=== PATIENT | male | born 1930 | race Caucasian/White ===

== ENCOUNTER 2018-03-12 10:40 | Observation (INO) ==
[2018-03-12 11:59] LABS: Baso % (Auto) 0.5 % (0.0-2.0); Eos # (Auto) 0.1 th/mm3 (0.0-0.4); Eos % (Auto) 1.3 % (0.0-4.0); Hematocrit 42.9 % (39.0-51.0); Hemoglobin 14.5 gm/dL (13.0-17.0); Lymph # (Auto) 1.4 th/mm3 (1.0-4.8); Lymph % (Auto) 21.7 % (9.0-44.0); Mean Corpuscular HGB Conc 33.8 % (32.0-36.0); Mean Corpuscular Hemoglobin 29.5 pg (27.0-34.0); Mean Corpuscular Volume 87.2 fL (80.0-100.0); Mean Platelet Volume 8.7 fL (7.0-11.0); Mono # (Auto) 0.6 th/mm3 (0.0-0.9); Mono % (Auto) 9.6 % (0.0-8.0); Neut # (Auto) 4.3 th/mm3 (1.8-7.7); Neut % (Auto) 66.9 % (16.0-70.0); Platelet Count 205 th/mm3 (150-450); Red Blood Count 4.92 mil/mm3 (4.50-5.90); White Blood Count 6.4 th/mm3 (4.0-11.0)
[2018-03-12 12:12] LABS: Prothrombin Time 10.2 sec (9.8-11.6)
[2018-03-12 12:22] LABS: Albumin 3.7 g/dL (3.4-5.0); Calcium 8.7 mg/dL (8.5-10.1); Carbon Dioxide 26.8 meq/L (21.0-32.0); Potassium 4.2 meq/L (3.5-5.1)
[2018-03-12] MEDS ORDERED: Sod Chloride 0.9% Inj 1,000 ML IV.CONT SCH ×2 (12:30→16:15)
[2018-03-12] MEDS ORDERED: Heparin/NS PF Inj 1,500 ML ONE (13:29)
[2018-03-12] MEDS ORDERED: fentaNYL Citrate Inj 100 MCG/2 ML Ampul ONE (13:30)
[2018-03-12 13:43] LABS: Bilirubin,Urine Negative (Negative); Clarity,Urine Clear (Clear); Color,Urine Yellow (Yellw/Straw); Glucose,Urine (UA) Negative (Negative); Leukocyte Esterase,Urine Negative (Negative); Nitrite,Urine Negative (Negative); Specific Gravity,Urine 1.009 (1.002-1.035)
[2018-03-12] MEDS ORDERED: Adenosine Stress Test 90 MG/30 ML Vial IV.SIG ONE (14:26)
[2018-03-12] MEDS ORDERED: Heparin/NS PF Inj 500 ML ONE ×2 (14:45→15:11)
[2018-03-12] MEDS ORDERED: Heparin 10,000 UNITS/10 ML Vial (for IV use) ONE (14:51)
--- NOTE | 2018-03-12 16:27 | CATHPROC ---
[facility] HIS Report Study Information Study Number Admission Scheduled Start Study Start [id number] Mar 12 2018 10:40AM 03/12/2018 Mar 12 2018 1:24PM [place] Service Cardiac Catheterization Admit Source Facility Department Other [facility] - Conservation Planner Physician and Clinical Staff Initial Sarah York Cytotechnologist Pawan ANDINO, Ever Recorder Roopa Fierro,RT(R) (BS) Recorder Patrick Kamara,RT(R) Brayden Cook RCIS(BS) Procedures Performed Procedure Location (Site) Vessel Name Coronary Angiograms LCA Left Coronary Coronary Angiograms RCA Right Coronary Drug Eluting Inflatio RCA Dist Right Coronary Drug Eluting Inflatio RCA Mid Right Coronary PTCA RCA Dist Right Coronary PTCA RCA Mid Right Coronary PTCA RCA Prox Right Coronary Wire insertion Radial (right) Radial Art. Equipment Time Web Programmer Description Size Mfg Part Number Used/Scraped COPILOT VALVE, BLEEDBACK [id number] 14:21 [employer] Used CONTROL *[id number] WIRE, BALANCE MIDDLEWEIGHT [id number] 14:21 [employer] 190CM Used 190CM *[id number] WIRE, BALANCE MIDDLEWEIGHT [id number] 14:27 [employer] 190CM Used 190CM *[id number] WIRE, BALANCE MIDDLEWEIGHT [id number] 14:31 [employer] 190CM Used 190CM *[id number] 13:53 [employer] WIRE, NITONOL 80CM 80CM Used *[id number] CATHETER, FR5 SWAN CHANI 13:57 MAX BRANDT FR 5 [id number] *[id number] Used MONITOR TRANSDUCER, TRUWAVE [id number] 13:36 MAX BRANDT * Used W/STOCKCOCK *[id number] TRANSDUCER, TRUWAVE [id number] 13:36 MAX BRANDT * Used W/STOCKCOCK *6384759 SDN-21-2.5 13:53 [employer] NEEDLE, PERCUTANEOUS ENTRY 21G X 2.5CM Used *9863986 [phone] *[id number] [phone] *[id number] [id number] 13:36 Relive BLANKET,WARM AIR CCL * Used *[id number] 13:36 Relive PACK, CCL CUSTOM * Used *6382803 [id number] 14:42 [employer] BALLOON, 2.0 X 20MM EUPHORA 20MM Used *[id number] 14:51 [employer] BALLOON, 2.5 X 20MM EUPHORA 20MM Used *[id number] BALLOON, 2.5 X 20MM NC [id number] 14:55 [employer] 20MM Used EUPHORA *[id number] BALLOON, 2.75 X 8MM NC [id number] 15:56 [employer] 8MM Used EUPHORA *[id number] 13:49 [employer] JL 3.5 DXTERITY CATHETER FR 5 Used *5832124 [id number] 13:49 [employer] JR 4.0 DXTERITY CATHETER FR 5 Used *[id number] 15:39 [employer] STENT, 2.25 15MM HITESH 2.25 15MM [id number] Used 15:04 [employer] STENT, 2.25 22MM HITESH 2.25 22MM [id number] Used 14:49 [employer] STENT, 2.25 38MM HITESH 2.25 38MM [id number] Used 15:45 [employer] STENT, 2.5 38MM HITESH 2.5 38MM [id number] Used [id number] 15:52 [employer] STENT, 2.75 12MM HITESH 2.75 12MM Used *[id number] [id number] 14:46 [employer] MEDICAL 30 INNA INDEFLATOR Used *[id number] BAND, RADIAL COMPRESSION TR [id number] 15:59 [employer] 24CM Used SHORT 24 *[id number] 13:36 [employer] MEDICAL WIRE, 3MMJ .035 180CM 180CM Used *[id number] 13:36 NAMIC MANIFOLD, 2 PORT * Used *6710431 [id number] 13:36 NAMIC MANIFOLD, 4 PORT * Used *[id number] 13:36 [employer] OMNIPAQUE, 350 MG, 150ML 150ML [id number] Used SHEATH, FR6 TRANSRADIAL 80-1060 13:53 [employer] FR 6 Used SLENDER 10CM *[id number] SHEATH, FR6 TRANSRADIAL 80-1060 13:53 [employer] FR 6 Used SLENDER 10CM *[id number] 15:08 [employer] CATHETER, FR6 GUIDELINER FR 6 5571 *[id number] Used Equipment Model, Serial, Lot Number and Expiration Data Description Model Number Serial Number Lot Number Expiration Date JR 4.0 DXTERITY CATHETER [id number] 06-25-2020 STENT, 2.25 15MM HITESH [id number] 10-15-2019 STENT, 2.25 22MM HITESH [id number] 04-12-2019 STENT, 2.5 38MM HITESH [id number] 09-26-2019 STENT, 2.75 12MM HITESH [id number] 09-15-2019 WIRE, NITONOL 80CM [id number] 06-09-2022 History: Current Medications Medication Dosage/Unit Route Frequency Last Date/Time Taken Statins (any) History: Allergies Allergy Reaction No Known Allergies History: Risk Factors Family History of Hypertension Dyslipidemia Previous MD Previous Heart Failure Premature CAD Yes Yes Yes No No Prior Valve Prior PCI Prior CABG Surgery No No No Cerebrovascular Peripheral Artery Chronic Lung On Dialysis Diabetes Disease Disease Disease No No No No No History: Stress Tests Stress or Imaging Studies Performed No History: Other Disease Selection Items HTN History: Other Current Smoker No Labs Hgb (g/dl) Hct (%) WBC (l/cumm) Platelets (thousands) 11.60-17.00 35.00-51.00 4.00-11.00 150.00-450.00 14.5 42.9 6.4 205 Glucose (mg/dl) BUN (mg/dl) Creatinine (mg/dl) BUN:Creatinine (1:x) 74.00-106.00 7.00-18.00 0.50-1.30 10.00-20.00 95 18 1.0 18 Na (meq/l) K (meq/l) 136.00-145.00 3.50-5.10 141 4.2 INR (PTT:PT) 0.90-1.10 1 CPK-MB (ng/ML) 0.50-3.60 Not Drawn Medication Medication Total Dose (Bolus/Oral) Medication Total Dosage/Unit 1% XYLOCAINE 5 mL FENTANYL 50 mcg HEPARIN 9000 units PLAVIX 600 mg VERAPAMIL 4 mg VERSED 2 mg Medications (Bolus/Oral) Medication Time Given Dosage/Unit Administered By Reason 1% XYLOCAINE 03/12/2018 2:02:15 PM 5 mL Sarah Venegas 5 mL 1% XYLOCAINE given in lab by Sarah Venegas in Right Radial via Subcutaneous. VERSED 03/12/2018 2:03:24 PM 2 mg Ever Villalta RN 2 mg VERSED given in lab by Ever Villalta RN in Left Antecubital via Peripheral IV. Ordered by Sarah Venegas. FENTANYL 03/12/2018 2:03:30 PM 50 mcg Ever Villalta RN 50 mcg FENTANYL given in lab by Ever Villalta RN in Left Antecubital via Peripheral IV. Ordered by Sarah Huang. VERAPAMIL 03/12/2018 2:04:09 PM 4 mg Sarah Venegas 4 mg VERAPAMIL given in lab by Sarah Venegas in Right Radial via Intra-arterial. Ordered by Alonzo Venegas. HEPARIN 03/12/2018 2:05:56 PM 5000 units Ever Villalta RN 5000 units HEPARIN given in lab by Ever Villalta RN in Left Antecubital via Peripheral IV. Ordered by Sarah Venegas. HEPARIN 03/12/2018 2:28:43 PM 3000 units Ever Villalta RN 3000 units HEPARIN given in lab by Ever Villalta RN in Left Antecubital via Peripheral IV. Ordered by Sarah Venegas. HEPARIN 03/12/2018 3:28:00 PM 1000 units Ever Villalta RN 1000 units HEPARIN given in lab by Ever Villalta RN in Left Antecubital via Peripheral IV. Ordered by Sarah Venegas. PLAVIX 03/12/2018 4:04:32 PM 600 mg Ever Villalta RN 600 mg PLAVIX given in lab by vEer Villalta RN via Oral. Ordered by Sarah Venegas. Medication (Drip) Medication Time Given Dosage/Unit Concentration/Unit Diluent (ml) Solution IV Solutions 03/12/2018 1:24:34 PM 0 mL (IV) 500 NaCl .9 IV Solutions given in lab by Ever Villalta RN in Left Antecubital via Peripheral IV. Pump/Drip Flow = 30 ml/hr using NaCl .9. Initial Case Assessment Cardiovascular HR Rhythm NIBP Chest Pain 71 reg 158/74 0 Edema Present Skin color Skin None Normal Warm Dry Circulatory - Right Pulses Dorsalis Pedis Femoral Radial 3 3 3 Scale (0,1,2,3,4,d) Scale (0,1,2,3,4,d) Circulatory - Lower Extremities Color Lower Right Color Lower Left Normal Normal Neurological State Oriented to time-place- Alert Moves all extremities person Respiration - General Respiration Rate SpO2 (%) (B/min) 18 96 Final Case Assessment Cardiovascular HR Rhythm NIBP Chest Pain 61 Sinus 173/82 0 Edema Present Skin color Skin None Normal Warm Dry Circulatory - Right Pulses Dorsalis Pedis Femoral Radial 3 3 3 Scale (0,1,2,3,4,d) Scale (0,1,2,3,4,d) Neurological State Oriented to time-place- Alert Moves all extremities person Respiration - General Respiration Rate SpO2 (%) O2 (lpm) (B/min) 14 96 2 Chronological Log Time Study Chronological Log 13:24:20 Patient arrived via Bed. 13:24:21 Patient Name, D.O.B, / Armband Verified By R.N. 13:24:21 Consent signed by the physician and the patient and verified by the Conservation Planner staff. 13:24:22 Pre-op and post- op instructions given; patient acknowledges understanding of instructions. 13:24:24 Presedation assessment performed by Conservation Planner RN. 13:24:26 A # 20 IV was noted in the Antecubital (right). Grade = 0 13:24:26 Allens test performed on the right radial and ulnar artery. 13:24:27 Patient has been NPO for More than 6Hrs. 13:24:28 Skin Breakdown none per pt 13:24:29 Patient Warmer Placed on the Table. 13:24:32 Leonel Prominences Protected 13:24:33 A # 20 IV was noted in the Antecubital (left). Grade = 0 IV Solutions given in lab by Ever Villalta RN in Left Antecubital via Peripheral IV. Pump/Drip F low = 30 ml/hr using NaCl 13:24:34 .9. 13:24:35 History and physical on the chart or being dictated. Assessment: Initial Case, HR=71 BPM, Rhythm=reg, ABJD=600/74 mmhg, Chest Pain=0, Edema=None, Co miriam=Normal, Skin = Warm, Dry Right Pulses: Armaan Ped=3, Femoral=3, Radial=3 13:24:35 Lower Right Extremities: Color=Normal Lower Left Extremities: Color=Normal Neurological: State=Alert, Ox3, CORTEZ Respiration: Resp=18 B/min, SpO2=96 % Vitals capture started with the following parameters, Patient=Adult, Interval=5 min, Initial Pr wwejat=009 mmHg, 13:30:25 Deflation Rate=5 mmHg, Cuff placed on Left Arm 13:30:46 Reference ECG taken 13:31:07 HR=71 bpm, NJKE=077/74 mmhg, SpO2=95.0 %, Resp=13 B/min, Pain=0, Jaime=10, Avila=2 13:36:08 HR=71 bpm, YXQP=657/77 mmhg, SpO2=93.0 %, Resp=18 B/min, Pain=0, Jaime=10, Avila=2 13:41:07 HR=71 bpm, AXUA=049/81 mmhg, SpO2=95.0 %, Resp=20 B/min, Pain=0, Jaime=10, Avila=2 13:46:10 HR=70 bpm, DFHN=080/73 mmhg, SpO2=95.0 %, Resp=13 B/min, Pain=0, Jaime=10, Avila=2 13:51:07 HR=71 bpm, ONYV=756/80 mmhg, SpO2=92.0 %, Resp=18 B/min, Pain=0, Jaime=10, Avila=2 Time Out. Correct patient, correct procedure, correct physician, labs, allergies, and equipment verified with high density press laborer 13:51:31 team present. Fire risk assesment completed (see hard stop sheet for coding). Time Out Conc urred by MD and individual staff in procedure. 13:51:34 Case Start A SHEATH, FR6 TRANSRADIAL SLENDER 10CM FR 6 was exchanged in the Antecubital (right). This was necessary in 13:52:06 order to accomodate a larger catheter. 13:53:52 Pressure channel 1 zeroed. 13:55:48 A CATHETER, FR5 SWAN CHANI MONITOR FR 5 was inserted via Brach. Vein (right) 13:56:10 HR=67 bpm, DGIF=413/77 mmhg, SpO2=95.0 %, Resp=18 B/min, Pain=0, Jaime=10, Avila=2 Recorded Pressure: RA, HR=70, Condition=Condition 1 13:57:57 (Right Atrium) RA 5/3/1 Recorded Pressure: RV, HR=70, Condition=Condition 1 13:58:22 (Right Ventricle) RV 25/-2/3 Recorded Pressure: PCW, HR=70, Condition=Condition 1 13:58:54 (Pulmonary Capillary Wedge) PCW Recorded Pressure: MPA, HR=70, Condition=Condition 1 13:59:19 (Main Pulmonary Artery) MPA 14:00:12 Saturation: Site=PA (Pulmonary Artery) , O2=77.7 %, Hgb=14.5 gm/dl, Condition=Condition 1. Used in calculation. Recorded Pressure: MPA, HR=71, Condition=Condition 1 14:00:56 (Main Pulmonary Artery) MPA 06/03/15 14:01:09 HR=71 bpm, OFQA=076/78 mmhg, SpO2=92.0 %, Resp=20 B/min, Pain=0, Jaime=10, Avila=2 14:02:08 [place] Chani Catheter Removed 14:02:15 5 mL 1% XYLOCAINE given in lab by Sarah Venegas in Right Radial via Subcutaneous. 14:03:07 Access site was Right Radial Artery . A SHEATH, FR6 TRANSRADIAL SLENDER 10CM FR 6 was advanced into the Fem Art (right) using the Per cutaneous 14:03:13 technique. 14:03:24 2 mg VERSED given in lab by Ever Villalta RN in Left Antecubital via Peripheral IV. Ordered by Sarah Venegas. 14:03:30 50 mcg FENTANYL given in lab by Ever Villalta RN in Left Antecubital via Peripheral IV. Orde red by Sarah Venegas. 14:03:57 Saturation: Site=Ao (Aorta) , O2=93.3 %, Hgb=14.5 gm/dl, Condition=Condition 1. Used in franky culation. 14:04:09 4 mg VERAPAMIL given in lab by Sarah Venegas in Right Radial via Intra-arterial. Ordered by Sarah Venegas. A JR 4.0 DXTERITY CATHETER FR 5 was advanced over a wire. OMNIPAQUE, 350 MG, 150ML 150ML was us ed for 14:04:46 injections. 14:05:56 5000 units HEPARIN given in lab by Ever Villalta RN in Left Antecubital via Peripheral IV. O rdered by Sarah Venegas. 14:06:10 HR=69 bpm, AHMX=219/66 mmhg, SpO2=88.0 %, Resp=22 B/min, Pain=0, Jaime=10, Avila=2 Recorded Pressure: Ao, HR=71, Condition=Condition 1 14:06:49 (Aorta) Ao 128/51/83 14:08:17 The RCA was injected and visualized at various angles. OMNIPAQUE, 350 MG, 150ML 150ML used . After removing the current catheter a JL 3.5 DXTERITY CATHETER FR 5 was advanced over a WIRE, 3 MMJ .035 180CM 14:10:47 180CM. 14:11:05 HR=71 bpm, FZDO=763/66 mmhg, SpO2=91.0 %, Resp=18 B/min, Pain=0, Jaime=10, Avila=2 14:12:40 The LCA was injected and visualized at various angles. OMNIPAQUE, 350 MG, 150ML 150ML used . 14:16:06 HR=71 bpm, NJTG=529/70 mmhg, SpO2=94.0 %, Resp=19 B/min, Pain=0, Jaime=10, Avila=2 14:21:05 HR=70 bpm, EZEG=155/77 mmhg, SpO2=94.0 %, Resp=20 B/min, Pain=0, Jaime=10, Avila=2 After removing the current catheter a JR 4.0 GUIDE CATHETER FR 6 was advanced over a WIRE, 3MMJ .035 180CM 14:21:50 180CM. 14:23:06 Activated Clotting Time Drawn 14:26:10 HR=65 bpm, RZHV=485/72 mmhg, SpO2=95.0 %, Resp=30 B/min, Pain=0, Jaime=10, Avila=2 14:27:53 ACT (Normal Range 90-180) = 241 14:28:43 3000 units HEPARIN given in lab by Ever Villalta RN in Left Antecubital via Peripheral IV. O rdered by Sarah Venegas. 14:30:00 A WIRE, BALANCE MIDDLEWEIGHT 190CM 190CM was inserted via Radial (right). 14:31:07 HR=64 bpm, SAOY=651/74 mmhg, SpO2=95.0 %, Resp=19 B/min, Pain=0, Jaime=10, Avila=2 14:35:07 Wire removed 14:36:08 HR=65 bpm, GGMN=336/70 mmhg, SpO2=96.0 %, Resp=12 B/min, Pain=0, Jaime=10, Avila=2 After removing the current catheter a AL 1 GUIDE CATHETER FR 6 was advanced over a WIRE, 3MMJ . 035 180CM 14:37:44 180CM. 14:39:25 A WIRE, BALANCE MIDDLEWEIGHT 190CM 190CM was inserted via Radial (right). 14:41:09 HR=64 bpm, NNWM=806/69 mmhg, SpO2=96.0 %, Resp=18 B/min, Pain=0, Jaime=10, Avila=2 14:42:05 Interventional wire has crossed the lesion A BALLOON, 2.0 X 20MM EUPHORA 20MM was inserted over WIRE, BALANCE MIDDLEWEIGHT 190CM 190CM via the 14:44:35 RCA Dist. A BALLOON, 2.0 X 20MM EUPHORA 20MM over a WIRE, BALANCE MIDDLEWEIGHT 190CM 190CM in the RCA Dis t was 14:45:39 inflated using a 30 INNA INDEFLATOR at 10 inna for 30 sec. 14:46:08 HR=64 bpm, ZEMR=167/72 mmhg, SpO2=96.0 %, Resp=16 B/min, Pain=0, Jaime=10, Avila=2 14:47:37 Balloon Removed. A STENT, 2.25 38MM HITESH 2.25 38MM was advanced through a AL 1 GUIDE CATHETER FR 6 over a WIRE, BALANCE 14:48:52 MIDDLEWEIGHT 190CM 190CM. 14:50:03 Stent not deployed. Stent removed and intact. A BALLOON, 2.5 X 20MM EUPHORA 20MM was inserted over WIRE, BALANCE MIDDLEWEIGHT 190CM 190CM via the 14:50:39 RCA Dist. 14:51:09 HR=62 bpm, ROXF=771/74 mmhg, SpO2=96.0 %, Resp=12 B/min, Pain=0, Jaime=10, Avila=2 A BALLOON, 2.5 X 20MM EUPHORA 20MM over a WIRE, BALANCE MIDDLEWEIGHT 190CM 190CM in the RCA Dis t was 14:52:20 inflated using a 30 INNA INDEFLATOR at 10 inna for 15 sec. A BALLOON, 2.5 X 20MM EUPHORA 20MM over a WIRE, BALANCE MIDDLEWEIGHT 190CM 190CM in the RCA Dis t was 14:53:22 inflated using a 30 INNA INDEFLATOR at 10 inna for 10 sec. 14:54:21 Balloon Removed. 14:56:06 Activated Clotting Time Drawn 14:56:13 HR=62 bpm, GLAA=614/70 mmhg, SpO2=96.0 %, Resp=13 B/min, Pain=0, Jaime=10, Avila=2 A BALLOON, 2.5 X 20MM NC EUPHORA 20MM was inserted over WIRE, BALANCE MIDDLEWEIGHT 190CM 190CM via 14:57:49 the RCA Prox. A BALLOON, 2.5 X 20MM NC EUPHORA 20MM over a WIRE, BALANCE MIDDLEWEIGHT 190CM 190CM in the RCA Prox 14:58:36 was inflated using a 30 INNA INDEFLATOR at 20 inna for 25 sec. 14:59:38 Balloon Removed. 15:01:10 HR=62 bpm, UZHS=243/75 mmhg, SpO2=96.0 %, Resp=19 B/min, Pain=0, Jaime=10, Avila=2 A STENT, 2.25 38MM HITESH 2.25 38MM was advanced through a AL 1 GUIDE CATHETER FR 6 over a WIRE, BALANCE 15:01:13 MIDDLEWEIGHT 190CM 190CM. 15:01:42 ACT (Normal Range 90-180) = 309 15:03:05 Stent not deployed. Stent removed and intact. A STENT, 2.25 22MM HITESH 2.25 22MM was advanced through a AL 1 GUIDE CATHETER FR 6 over a WIRE, BALANCE 15:04:32 MIDDLEWEIGHT 190CM 190CM. 15:06:13 HR=62 bpm, XYCW=293/74 mmhg, SpO2=95.0 %, Resp=18 B/min, Pain=0, Jaime=10, Avila=2 15:08:27 Delivery device removed A CATHETER, FR6 GUIDELINER FR 6 was advanced over a wire. OMNIPAQUE, 350 MG, 150ML 150ML was us ed for 15:09:32 injections. 15:11:14 HR=62 bpm, OSZN=870/76 mmhg, SpO2=95.0 %, Resp=17 B/min, Pain=0, Jaime=10, Avila=2 A STENT, 2.25 22MM HITESH 2.25 22MM was advanced through a CATHETER, FR6 GUIDELINER FR 6 over a W JESSIE, 15:13:24 BALANCE MIDDLEWEIGHT 190CM 190CM. 15:16:11 HR=62 bpm, JZQU=034/82 mmhg, SpO2=95.0 %, Resp=19 B/min, Pain=0, Jaime=10, Avila=2 15:20:31 Stent not deployed. Stent removed and intact. 15:21:14 HR=63 bpm, SKKT=089/78 mmhg, SpO2=96.0 %, Resp=11 B/min, Pain=0, Jaime=10, Avila=2 A BALLOON, 2.5 X 20MM NC EUPHORA 20MM was inserted over WIRE, BALANCE MIDDLEWEIGHT 190CM 190CM via 15:21:38 the RCA Prox. A BALLOON, 2.5 X 20MM NC EUPHORA 20MM over a WIRE, BALANCE MIDDLEWEIGHT 190CM 190CM in the RCA Prox 15:21:57 was inflated using a 30 INNA INDEFLATOR at 12 inna for 10 sec. A BALLOON, 2.5 X 20MM NC EUPHORA 20MM over a WIRE, BALANCE MIDDLEWEIGHT 190CM 190CM in the RCA Prox 15:23:22 was inflated using a 30 INNA INDEFLATOR at 20 inna for 20 sec. A BALLOON, 2.5 X 20MM NC EUPHORA 20MM over a WIRE, BALANCE MIDDLEWEIGHT 190CM 190CM in the RCA Mid 15:24:18 was inflated using a 30 INNA INDEFLATOR at 12 inna for 10 sec. 15:26:17 HR=63 bpm, BKNT=029/81 mmhg, SpO2=96.0 %, Resp=17 B/min, Pain=0, Jaime=10, Avila=2 15:27:41 Balloon Removed. 15:28:00 1000 units HEPARIN given in lab by Ever Villalta RN in Left Antecubital via Peripheral IV. O rdered by Sarah Venegas. A STENT, 2.25 22MM HITESH 2.25 22MM was advanced through a CATHETER, FR6 GUIDELINER FR 6 over a W JESSIE, 15:28:32 BALANCE MIDDLEWEIGHT 190CM 190CM. A STENT, 2.25 22MM HITESH 2.25 22MM was deployed using a 30 INNA INDEFLATOR at 12 atmospheres for 20 seconds 15:30:53 in the RCA Dist. 15:31:16 HR=68 bpm, NLNF=059/87 mmhg, SpO2=97.0 %, Resp=10 B/min, Pain=0, Jaime=10, Avila=2 15:32:32 NIBP STAT measurement started. 15:33:19 HR=64 bpm, ODAY=113/73 mmhg, SpO2=97.0 %, Resp=9 B/min, Pain=0, Jaime=10, Avila=2 15:34:46 Re-inflated the stent balloon in the RCA Dist to 12 INNA for 10 seconds. 15:35:04 Delivery device removed 15:36:13 HR=64 bpm, GDMT=941/83 mmhg, SpO2=96.0 %, Resp=10 B/min, Pain=0, Jaime=10, Avila=2 15:37:01 The RCA was injected and visualized at various angles. OMNIPAQUE, 350 MG, 150ML 150ML used . A STENT, 2.25 15MM HITESH 2.25 15MM was advanced through a CATHETER, FR6 GUIDELINER FR 6 over a W JESSIE, 15:39:27 BALANCE MIDDLEWEIGHT 190CM 190CM. A STENT, 2.25 15MM HITESH 2.25 15MM was deployed using a 30 INNA INDEFLATOR at 13 atmospheres for 15 seconds 15:40:45 in the RCA Dist. 15:41:14 HR=65 bpm, WGQC=562/82 mmhg, SpO2=96.0 %, Resp=10 B/min, Pain=0, Jaime=10, Avila=2 15:42:15 Delivery device removed A STENT, 2.5 38MM HITESH 2.5 38MM was advanced through a CATHETER, FR6 GUIDELINER FR 6 over a WIR E, 15:44:49 BALANCE MIDDLEWEIGHT 190CM 190CM. 15:46:17 HR=62 bpm, FUQA=470/83 mmhg, SpO2=93.0 %, Resp=15 B/min, Pain=0, Jaime=10, Avila=2 A STENT, 2.5 38MM HITESH 2.5 38MM was deployed using a 30 INNA INDEFLATOR at 14 atmospheres for 20 seconds in 15:48:24 the RCA Mid. 15:49:55 Delivery device removed A STENT, 2.75 12MM HITESH 2.75 12MM was advanced through a CATHETER, FR6 GUIDELINER FR 6 over a W JESSIE, 15:51:05 BALANCE MIDDLEWEIGHT 190CM 190CM. 15:51:18 HR=62 bpm, SBQH=400/79 mmhg, SpO2=94.0 %, Resp=12 B/min, Pain=0, Jaime=10, Avila=2 A STENT, 2.75 12MM HITESH 2.75 12MM was deployed using a 30 INNA INDEFLATOR at 16 atmospheres for 20 seconds 15:53:41 in the RCA Mid. 15:54:41 Delivery device removed 15:55:15 Catheter was removed A BALLOON, 2.75 X 8MM NC EUPHORA 8MM was inserted over WIRE, BALANCE MIDDLEWEIGHT 190CM 190CM v ia the 15:55:49 RCA Mid. 15:56:17 HR=62 bpm, ESLD=908/80 mmhg, SpO2=95.0 %, Resp=13 B/min, Pain=0, Jaime=10, Avila=2 A BALLOON, 2.75 X 8MM NC EUPHORA 8MM over a WIRE, BALANCE MIDDLEWEIGHT 190CM 190CM in the RCA M id 15:56:28 was inflated using a 30 INNA INDEFLATOR at 20 inna for 30 sec. 15:57:52 Balloon Removed. 15:57:58 Wire removed 15:58:05 The RCA was injected and visualized at various angles. contrast used. 15:59:05 A WIRE, 3MMJ .035 180CM 180CM was inserted via Radial (right). 16:00:01 Catheter was removed 16:00:12 Case End (Physician broke scrub) 16:01:18 HR=61 bpm, PTKV=779/82 mmhg, SpO2=96.0 %, Resp=10 B/min, Pain=0, Jaime=10, Avila=2 16:02:53 Activated Clotting Time Drawn Radial Compression Device Used. 13 mLs of air placed in BAND, RADIAL COMPRESSION TR SHORT 24 24 CM. Affected 16:03:35 hand 97 % O2 saturation. 16:03:46 No case complications noted. 16:03:50 Cine recording checked. 16:04:15 Bedside Report will be given. 16:04:20 Implantable Device card placed in patient's chart. 16:04:29 A Left and Right Heart Cath was performed. 16:04:32 600 mg PLAVIX given in lab by Ever Villalta RN via Oral. Ordered by Sarah Venegas. Assessment: Final Case, HR=61 BPM, Rhythm=Sinus, TOZZ=193/82 mmhg, Chest Pain=0, Edema=None, Color=Normal, Skin = Warm, Dry 16:04:34 Right Pulses: Armaan Ped=3, Femoral=3, Radial=3 Neurological: State=Alert, Ox3, CORTEZ Respiration: Resp=14 B/min, SpO2=96 %, O2=2 lpm 16:06:22 HR=64 bpm, QUIW=786/86 mmhg, SpO2=96.0 %, Resp=20 B/min, Pain=0, Jaime=10, Avila=2 16:08:23 ACT (Normal Range 90-180) = 273 16:10:45 Vitals capture stopped. 16:12:04 Sheath(s) left in place, will be removed in Holding Area. Venous right antecubital. 16:14:05 Patient moved to stretcher End Study - Contrast Media Used In Study Contrast Total Opened (mL) Total Used (mL) Total Wasted (mL) Omnipaque 350 300 50 End Study - Maximum Contrast Load Max Contrast Load (mL) 455.5 End Study - Radiation Exposure Fluoro Time (minutes) 44.0 End Study - Patient Disposition Complications Transferred To Interventional Outcome No Outpatient Bed successful
[2018-03-12] MEDS ORDERED: Iohexol 350 MG/ML 100 ML Vial (for Cath Lab) IVCONTRAST ONE (16:35)
--- NOTE | 2018-03-12 19:10 | MA ---
cc: Sarah Venegas MD, Aalok DATE: 03/12/2018 REFERRING PHYSICIAN: Dr. Davis. PREPROCEDURE DIAGNOSIS: Severe symptomatic aortic stenosis. POSTPROCEDURE DIAGNOSES: Coronary artery disease, status post successful percutaneous coronary intervention to the right coronary artery using 4 drug-eluting stents. PROCEDURES PERFORMED: 1. Selective coronary angiography via the right radial artery. 2. Right heart catheterization via the right brachial vein. PROCEDURES PERFORMED: 1. Selective coronary angiography via the right radial artery. 2. Right heart catheterization via the right brachial vein. 3. Successful percutaneous coronary intervention to the right coronary artery using a 2.25 x20 Resolute Felix drug-eluting stent in the PDA, followed by a 225 x 15 Resolute [place] drug-eluting stent in the distal RCA, followed by a 2.5 x 38 Resolute Felix drug-eluding stent in the mid RCA, followed by a 2.25 x 22 Resolute [place] drug-eluting stent in the posterior descending artery in overlapping fashion with a 2.25 x 15 Resolute [place] drug-eluting stent in the distal RCA that was postdilated with a 2.5 balloon followed by a 2.5 x 38 Resolute Felix drug-eluting stent in the mid RCA, followed by a 2.75 x 12 Resolute Felix drug-eluting stent in the mid RCA. INDICATIONS: In brief, Mr. Chris Hayes is a very pleasant 87-year-old gentleman who presents today for transcatheter aortic valve replacement workup. Please see H and P for details. DESCRIPTION OF PROCEDURE: After discussion of risks, benefits, and alternatives, the patient signed informed consent. He was brought to catheterization suite stable in a fasting nonsedated state. He was sterilely prepped and draped in the usual fashion sedated with IV fentanyl and 1% lidocaine solution was used for local anesthesia and we placed a sheath into the brachial vein. A 5-British Ruby-Travis catheter was used to measure right-sided pressures. FINDINGS: HEMODYNAMICS: Mean RA pressure of 1. Mean PA pressure 15. Mean pulmonary capillary wedge pressure of 5. PA sat was 77. Keron cardiac index was 2.7. CORONARY ANGIOGRAPHY: We then proceeded with coronary angiography. We used a 2.5 micropuncture needle and obtained access to the right radial artery. Using a modified Seldinger technique, we placed a 5-British sheath into the right radial artery. Through this sheath, we used a 5-British JR4 dexterity catheter to engage the right coronary artery. Images were obtained after intracoronary contrast dye injection. We then exchanged for a 5-British JL 4.6 which was used to engage the left main coronary artery. Images were obtained after intracoronary contrast dye injection. FINDINGS: ANGIOGRAPHY: LEFT MAIN: The left main is moderate caliber that bifurcates into the left anterior descending artery and left circumflex artery. It is angiographically free of significant disease. LEFT ANTERIOR DESCENDING ARTERY: The left anterior descending artery is a moderate caliber vessel that courses distally to wrap around the apex. It gives rise to multiple diagonal branches. There is mild disease in the proximal portion of the vessel. The remainder of the vessel was angiographically free of significant disease. LEFT CIRCUMFLEX: Left circumflex is a moderate caliber vessel that courses distally to wrap around the apex, giving rise to multiple obtuse marginal branches. There is mild disease in this vessel. RIGHT CORONARY ARTERY: The right coronary artery is a moderate caliber vessel that bifurcates in the posterior descending and posterolateral artery. There is serial tandem lesions in the right coronary artery. There is a severe lesion in the PDA. The mid to distal RCA and tandem lesions in the RCA including lesion in the PDA and distal RCA as well as the mid RCA. INTERVENTIONAL SUMMARY: We then proceeded with planned percutaneous coronary intervention. Using an AL1 guide, we engaged the right coronary artery. A BMW wire was used to wire down the length of the vessel into the PDA. We predilated the posterior descending artery with a 2-0 Compliant balloon. We then attempted first to deliver a 2.25 Resolute Felix drug-eluting stent; however, the stent was unable to pass. 2-0 Compliant balloon followed by 2.5 Compliant balloon in the mid RCA, followed by a 2.5 balloon in the mid RCA. We then attempted to deliver our 2.25 stent to the posterior descending artery; however, we were unable to advance the stent past the mid RCA. Subsequently, we further predilated with a 2.59 noncompliant balloon. We then reattempted to place a shorter stent in the PDA, which was a 2.25 x 22. The stent would not again pass the mid RCA. We then subsequently used a Guide Liner and using a variable guide technique with a 2.5 balloon. We then subsequently used a Guide Liner for added support. Using a 2.5 balloon, we used an inch worm technique to advance our Guide liner into the mid RCA past the point of resistance. We were then able to place a shorter 2.25 x 22 Resolute [place] drug-eluting stent. We then placed in overlapping fashion a 2.25 x 15 Resolute Felix drug-eluting stent. This was postdilated with a 2.5 balloon. We then treated the mid artery with a 2.5 x 38 Resolute [place] drug-eluting stent, followed by a 2.75 x 12 Resolute Felix drug-eluting stent proximal to this stent. We postdilated the proximal portion with a 2.75 noncompliant balloon. The patient tolerated the procedure well without any complications. Heparin was given throughout the case and monitored using sterile activated clotting time measurements. The patient tolerated the procedure well without any complications. Our Guide catheter was removed over a wire. PROCEDURAL SUMMARY: Successful percutaneous coronary intervention to the right coronary artery using 4 drug-eluting stents (2.25 x 22 Resolute Felix drug-eluting stent, followed by 2.25 x 15 Resolute Felix drug-eluting stent, followed by 2.5 x 38 Resolute Felix drug-eluting stent, followed by 2.75 x 12 Resolute Felix drug-eluting stent). PLAN: 1. Aspirin 81 mg, Plavix 75 mg. for duration of 1 year, 2. Continuation of TAVR workup. Given the contrast used for today's procedure, we will place a CT chest, abdomen and pelvis. He will be seen in CV surgery consultation. Thank you for allowing me to participate in the care of Mr. Hayes. Please feel free to contact us with any further questions regarding his care. MD MELINA Casarez/ , 06:30 PM , 06:45 PM
--- NOTE | 2018-03-13 09:17 | ECG ---
Date Performed: 03/12/2018 Time Performed: 11:05:46 PTAGE: 87 years EKG: Sinus arrhythmia. Left axis deviation Left anterior fascicular block Nonspecific intraventr icular conduction delay Minimal voltage criteria for LVH Abnormal ECG NO PREVIOUS TRACING DOCTOR: Kumar Roach Interpretating Date/Time 03/13/2018 09:16:59
--- NOTE | 2018-03-13 14:18 | P.PNCV ---
- Note Subjective/Hospital Course: pt seen and evaluated sts data discussed with pt RISK SCORES About the STS Risk Calculator Procedure: AV Replacement Risk of Mortality: 3.979% Morbidity or Mortality: 20.497% Long Length of Stay: 9.564% Short Length of Stay: 24.793% Permanent Stroke: 1.642% Prolonged Ventilation: 11.894% DSW Infection: 0.329% Renal Failure: 7.748% Reoperation: 7.894% Objective: Vital Signs - 24 hr 03/12/18 16:33 03/12/18 17:44 03/12/18 18:00 Temperature 97.9 F Pulse Rate 70 70 Respiratory Rate 30 H Blood Pressure 145/79 H Pulse Oximetry 96 03/12/18 19:00 03/12/18 19:15 03/12/18 20:00 Temperature 98.6 F Pulse Rate 68 68 68 Respiratory Rate 16 Blood Pressure 140/72 Pulse Oximetry 94 L 03/12/18 21:00 03/12/18 22:00 03/12/18 23:00 Temperature Pulse Rate 66 66 68 Respiratory Rate Blood Pressure Pulse Oximetry 03/13/18 00:00 03/13/18 01:00 03/13/18 02:00 Temperature 98.4 F Pulse Rate 64 64 61 Respiratory Rate 18 Blood Pressure 140/81 Pulse Oximetry 95 03/13/18 03:00 03/13/18 04:00 03/13/18 05:00 Temperature 97.6 F Pulse Rate 62 62 62 Respiratory Rate 16 Blood Pressure 144/82 H Pulse Oximetry 98 03/13/18 06:00 03/13/18 07:00 03/13/18 08:00 Temperature 98.7 F Pulse Rate 62 67 67 Respiratory Rate 18 Blood Pressure 145/83 H Pulse Oximetry 97 03/13/18 09:00 03/13/18 10:00 Temperature Pulse Rate 65 63 Respiratory Rate Blood Pressure Pulse Oximetry Result Diagrams: 03/12/18 11:20 03/12/18 11:20
--- NOTE | 2018-03-13 14:51 | MB ---
cc: Steffi Bedoya Jacqueline R ARNP DATE: 03/13/2018 DATE OF : 1930 HISTORY OF PRESENT ILLNESS: An 87-year-old male, primary care physician is Dr. Trace Herrera, tune up mechanic Peña Davis, referred to Dr. Sarah Venegas with history of shortness of breath off and on for the past 1-1/2 years, some atypical indigestion type symptoms for the past couple of months, normally quite active, plays golf 3 times a week, works around his house. He drives, uses no walker or assistive devices, lives at home comfortably with his . He has denied any chest pain; however, has history of aortic stenosis that he has known for the last 2 years, non-rheumatic, underwent cardiac catheterization evaluation by Dr. Venegas, found to have a 90% RCA. He underwent PCI with stent placement x4 to the right coronary artery. We have since been consulted to evaluate for aortic valve replacement versus transcatheter aortic valve replacement. PAST MEDICAL HISTORY: Include aortic stenosis, benign prostatic hypertrophy, hypertension, hyperlipidemia, irritable bowel syndrome, left ventricular hypertrophy, prediabetes, ulcerative colitis. PAST SURGICAL HISTORY: Include partial colon resection, right hip surgery 2016, prostate surgery in the past, right rotator cuff surgery, tonsillectomy. ALLERGIES: NO KNOWN ALLERGIES. HOME MEDICATIONS: Include: 1. Amlodipine. 2. Finasteride. 3. Lisinopril. 4. Simvastatin. FAMILY HISTORY: Father from rheumatic heart disease at age 35. Mother also with heart disease. Sister with complications of diabetes type 1. SOCIAL HISTORY: The patient is and has 3 children. No tobacco. Drinks two cocktails a day. Retired from [employer]. REVIEW OF SYSTEMS: GENERAL: No night sweats, fever, heat or cold intolerance. SKIN: No psoriasis, itching or hives. HEENT: No blurred vision, hearing loss. RESPIRATORY: Positive for shortness of breath with exertion. No chest pain. No paroxysmal nocturnal dyspnea or orthopnea. GASTROINTESTINAL: No diarrhea or vomiting. GENITOURINARY: No burning, frequency or urgency. CENTRAL NERVOUS SYSTEM: No history of TIA, CVA, seizure disorder. ENDOCRINOLOGY: Positive for prediabetes. PHYSICAL EXAMINATION: VITAL SIGNS: Blood pressure 140/80, heart rate of 65, temperature-max 98.7. GENERAL: The patient is awake, alert, in no acute distress. HEENT: Head is normocephalic, atraumatic. Pupils equal and reactive. Oral mucosa pink, moist. NECK: Supple. No JVD. HEART: Sounds S1, S2, with a grade 3/6 systolic ejection murmur best noted in the left sternal border. LUNGS: Clear to auscultation. No wheezes, rales or rhonchi. ABDOMEN: Soft, nontender. No masses or organomegaly. EXTREMITIES: No cyanosis, clubbing, or edema. LABORATORY DATA: Shows hemoglobin 14, hematocrit of 42, white cell count of 6, platelet count of 205. Sodium 141, potassium 4.2, BUN of 18, creatinine 1.04. Urinalysis is unremarkable. MRSA non-detected. INR 1.0. IMAGING STUDIES: Radiological exams are still pending at this time. ASSESSMENT AND PLAN: This is an 87-year-old patient with risks of mortality: 1. Advanced age. 2. Coronary artery disease with recent percutaneous coronary intervention to the right coronary artery. 3. History of hypertension. 4. His STS risk score is 4.0, deeming him a good candidate for transcatheter aortic valve replacement. GABRIELE Gama MD [facility] , 02:23 PM , 02:31 PM CEE
[2018-03-17 17:52] VITALS: BP 145/83; PULSE 63; RESP 18; TEMP 98.7; O2SAT 97
== END 2018-03-13 12:18 | disposition home or self-care (01) ==
LOC: HCIS 10:40 → HDIC 10:40 → HCAT 10:40 → HDIC 10:44 → HCIS 17:33
PROVIDERS: ADMIT Internal Medicine Cardiovascular Disease; ATTEND Internal Medicine Cardiovascular Disease

== ENCOUNTER 2018-04-15 05:29 | Inpatient (IN) ==
[2018-04-15] MEDS ORDERED: Metoprolol Tartrate 25 MG Tablet PO ONE (06:06)
[2018-04-15] MEDS ORDERED: Chlorhexidine Gluconate 2% 1 Pack (2 Cloths) TOPICAL ONE (06:06)
[2018-04-15] MEDS ORDERED: Sod Chloride 0.9% Inj 1,000 ML IV.CONT SCH (06:15)
[2018-04-15] MEDS ORDERED: Aspirin 325 MG Tablet PO SCH (06:15)
[2018-04-15] MEDS ORDERED: Chlorhexidine Gluconate 2% 1 Pack (2 Cloths) TOPICAL SCH (06:15)
[2018-04-15] MEDS ORDERED: Mupirocin 2% Nasal Oint Topical Syringe EACH NARE SCH (06:15)
[2018-04-15] MEDS ORDERED: Sodium Chlor 0.9% Inj 500 ML IV.SIG SCH (07:00)
[2018-04-15] MEDS ORDERED: ceFAZolin 2 GM Premix Inj 2 GM/50 ML PIGGYBACK IV.SIG SCH (07:00)
--- NOTE | 2018-04-15 07:30 | P.HPCA ---
History of Present Illness Service: Cardiology Primary Care Physician: Trace Herrera Chief Complaint: Aortic valve stenosis History of Present Illness: This is an 87-year-old male who follows with Dr. Peña Topete in the outpatient setting referred to Dr. Venegas secondary to progressive shortness of breath and severe aortic stenosis. Patient has had history of aortic stenosis over the course of the past 2 years which has become progressively worse. Patient was previously very active but now limited secondary to his symptoms. 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 Patient was then referred for consideration of aortic valve replacement. Patient was evaluated by cardiothoracic surgery and felt to be intermediate risk for surgical aortic valve replacement. After lengthy discussion with the patient, the patient decided to pursue transcatheter aortic valve replacement. Patient is now here today for elective procedure. - Diagnosis (1) Aortic stenosis, severe (2) Diastolic congestive heart failure, NYHA class 3 Inpatient Certification: I certify that the inpatient services were ordered in accordance with Medicare regulations governing the order. This includes certification that hospital inpatient services are reasonable and necessary and in the case of services not specified as inpatient-only under 42 CFR 419.22(n), that they are appropriately provided as inpatient services in accordance to with the 2-midnight benchmark under 43 CFR 412.3(e) Estimated Total Length of Stay (Days): 3 Plans for Post Hospital Care: Home Review of Systems All other systems reviewed negative except as stated in HPI [facility] - History History Provided By: Patient - Medical History Medical History: Medical History (Last Updated 03/12/18 @ 11:36 by Adelina Villa RN) Aortic stenosis Hyperlipidemia Hypertension IBD (inflammatory bowel disease) Kidney disease Prediabetes Shortness of breath on exertion Ulcerative colitis - Tobacco History Smoking Status: Never smoker - Alcohol History How Often Do You Have a Drink Containing Alcohol: 4 or more times a week Medications and Allergies Active Medications: Active Medications Aspirin (Aspirin) 325 mg PO [employer] YASMANI Stop: 04/18/18 06:01 Last Admin: 04/15/18 06:32 Dose: 325 mg Chlorhexidine Gluconate (Chlorhexidine 2% Cloth) 3 pack TOPICAL [employer] YASMANI Stop: 04/18/18 06:01 Cefazolin Sodium/Dextrose (Ancef 2 Gm Premix Inj) 2 gm in 50 mls @ 100 mls/hr IV.SIG ONCE YASMANI Stop: 04/18/18 06:01 Sodium Chloride (Ns Inj) 1,000 mls @ 125 mls/hr IV.CONT .Q8H [facility] Sodium Chloride (Ns Inj) 500 mls @ 30 mls/hr IV.SIG .Q10H [facility] Lactated Ringer's (Lr 1000 Ml Inj) 1,000 mls @ 30 mls/hr IV.SIG .Q24H [facility] Stop: 04/16/18 06:14 Mupirocin (Bactroban 2% Nasal Oint) 1 applicatio EACH NARE [employer] [facility] Stop: 04/18/18 06:01 Povidone Iodine (Betadine 5% Antisepsis Kit) 1 applicatio TOPICAL [employer] [facility] Stop: 04/18/18 06:01 Allergies Allergy/AdvReac Type Severity Reaction Status Date / Time No Known Allergies Allergy Verified 04/15/18 05:46 Home Medications Medication Instructions Recorded Confirmed Type amlodipine 5 mg PO DAILY 03/12/18 04/15/18 History finasteride 5 mg PO DAILY 03/12/18 04/15/18 History lisinopril 20 mg PO BID 03/12/18 04/15/18 History simvastatin 40 mg PO QPM 03/12/18 04/15/18 History Exam Vital signs: Vital Signs 04/15/18 06:19 Temperature 98.3 F Pulse Rate 79 Respiratory Rate 18 Blood Pressure 147/84 H Pulse Oximetry 95 Intake & Output 04/14/18 04/15/18 04/15/18 18:59 06:59 18:59 Weight 90 kg Other: Weight On Admission 90 kg - Constitutional no acute distress - Routine HEENT Exam Head: Present: normocephalic Eye: Present: EOMI, PERRL - Routine Neck Exam Absent: JVD - Routine Respiratory Exam Present: CTA bilaterally - Routine Cardiovascular Exam Present: RRR, murmur - Routine Abdominal Exam Present: soft, normoactive bowel sounds - Routine Extremities Exam Absent: cyanosis, clubbing, edema - Routine Neurological Exam Present: alert, oriented X3, CN II-XII intact. Absent: sensory deficit, motor deficit Results Intake and Output 04/14/18 04/15/18 04/15/18 22:59 06:59 14:59 Other: Weight 90 kg Weight On Admission 90 kg EKG interpretations - Dysrhythmias Sinus rhythms and dysrhythmias: sinus rhythm - Blocks, axis, hypertrophy, ST abn AV and intraventricular conduction: left anterior fascicular block Caprini VTE Risk Assessment Caprini VTE Risk Assessment: Moderate/High Risk (score >= 2) Caprini Risk Assessment Model: Point Value = 1 Point Value = 2 Point Value = 3 Point Value = 5 Age 41-60 Minor surgery BMI > 25 kg/m2 Swollen legs Varicose veins or History of unexplained or recurrent spontaneous Oral contraceptives or hormone replacement Sepsis (< 1 month) Serious lung disease, including pneumonia (< 1 month) Abnormal pulmonary function Acute myocardial infarction Congestive heart failure (< 1 month) History of inflammatory bowel disease Medical patient at bed rest Age 61-74 Arthroscopic surgery Major open surgery (> 45 min) Laparoscopic surgery (> 45 min) Malignancy Confined to bed (> 72 hours) Immobilizing plaster cast Central venous access Age >= 75 History of VTE Family history of VTE Factor V Leiden Prothrombin [id number] Lupus anticoagulant Anticardiolipin antibodies Elevated serum homocysteine Heparin-induced thrombocytopenia Other congenital or acquired thrombophilia Stroke (< 1 month) Elective arthroplasty Hip, pelvis, or leg fracture Acute spinal cord injury (< 1 month) Prophylaxis Regimen: Total Risk Factor Score Risk Level Prophylaxis Regimen 0-1 Low Early ambulation 2 Moderate Order ONE of the following: *Sequential Compression Device (SCD) *Heparin 5000 units SQ BID 3-4 Higher Order ONE of the following medications: *Heparin 5000 units SQ TID *Enoxaparin/Lovenox 40 mg SQ daily (WT < 150 kg, CrCl > 30 mL/min) *Enoxaparin/Lovenox 30 mg SQ daily (WT < 150 kg, CrCl > 10-29 mL/min) *Enoxaparin/Lovenox 30 mg SQ BID (WT < 150 kg, CrCl > 30 mL/min) AND/OR *Sequential Compression Device (SCD) 5 or more Highest Order ONE of the following medications: *Heparin 5000 units SQ TID (Preferred with Epidurals) *Enoxaparin/Lovenox 40 mg SQ daily (WT < 150 kg, CrCl > 30 mL/min) *Enoxaparin/Lovenox 30 mg SQ daily (WT < 150 kg, CrCl > 10-29 mL/min) *Enoxaparin/Lovenox 30 mg SQ BID (WT < 150 kg, CrCl > 30 mL/min) AND *Sequential Compression Device (SCD) Assessment and Plan - Assessment (1) Aortic stenosis, severe Code(s): I35.0 - Nonrheumatic aortic (valve) stenosis Status: Acute (2) Diastolic congestive heart failure, NYHA class 3 Code(s): I50.30 - Unspecified diastolic (congestive) heart failure Status: Acute - Plan Preoperative workup: STS score 3.9% [place] [employer] functional class III symptoms Body mass index 24.4 Frailty score 1 out of 4 Pulmonary function testing performed on March 12, 2018 shows an FEV1 of 1.78 consistent with moderate restrictive lung disease Echocardiogram from October 17, 2017 reveals a jet velocity of 4.3 cm/s, mean gradient of 43 mmHg, aortic valve area calculated 0.72 cm, ejection fraction between 60 and 65%, moderate aortic insufficiency, mild mitral regurgitation, mild tricuspid regurgitation Cardiac catheterization from March 12, 2018 reveals 90% mid right coronary stenosis with mild luminal irregularities in the left coronary system Computed tomographic analysis on March 12, 2018 reveals a short annulus diameter 27.4 mm in the long annulus diameter 33.9 mm with an annular area of 724.2 mm, sinus of Valsalva diameter 41.7 mm, sinotubular junction diameter 35.5 mm, left coronary height 13.2 mm, right coronary height 23.1 mm with an calculated implant angle left anterior oblique 14 and caudal 15, minimal luminal diameter calculi in the right iliac systems 5.0 mm and in the left 11.1 mm This is an 87-year-old male with history of coronary disease and recent percutaneous coronary intervention with 4 drug-eluting stents to the right coronary artery, hypertension, hyperlipidemia, benign prostatic hypertrophy, left ventricular hypertrophy, prediabetes, and severe symptomatic aortic stenosis with [place] [employer] functional class III symptoms. Patient is considered intermediate risk based on STS score with normal left ventricular ejection fraction. Risk benefits alternatives were discussed with the patient for consideration of transcatheter aortic valve replacement. We will plan for utilization of an Adames CP and S3 29 mm bioprosthetic valve implant, via left common femoral arterial approach.
--- NOTE | 2018-04-15 07:32 | ECG ---
Date Performed: 04/15/2018 Time Performed: 06:20:04 PTAGE: 87 years EKG: Sinus rhythm with PAC(s). Left anterior fascicular block IV conduction defect Inferior T wave changes are nonspec ific Abnormal ECG PREVIOUS TRACING : 03/12/2018 11.05 DOCTOR: Laron Tracy Interpretating Date/Time 04/15/2018 07:30:40
[2018-04-15] MEDS ORDERED: Normosol-R pH 7.4 Inj 1,000 ML IV.CONT ONE (08:21)
[2018-04-15] MEDS ORDERED: Lidocaine PF 1% Inj 5 ML Syringe INFILTRATN ONE (08:21)
[2018-04-15] MEDS ORDERED: Glycopyrrolate Inj 1 MG/5 ML Syringe IV.PUSH ONE (08:21)
[2018-04-15] MEDS ORDERED: Phenylephrine/NS 1000 MCG/10ML Syringe IV.PUSH ONE (08:21)
[2018-04-15] MEDS ORDERED: Neostigmine Inj 5 MG/5 ML Syringe IV.PUSH ONE (08:21)
[2018-04-15] MEDS ORDERED: Protamine Sulfate Inj 50 MG/5 ML Vial ONE (09:06)
[2018-04-15] MEDS ORDERED: Iohexol 350 MG/ML 50 ML Vial (for Rad Diag) PO ONE ×4 (09:19→09:20)
[2018-04-15] MEDS ORDERED: Lidocaine 2%/Epinephrine 1:200,000 PF Inj 20 ML Vial ONE (09:34)
--- NOTE | 2018-04-15 09:37 | P.OP ---
Date of procedure: 04/15/18 Anesthesia: GETA Surgeon: MD Yannick Boo MD Director Radiation Oncology: Sarah Venegas MD Operation and Findings: PREOPERATIVE DIAGNOSIS: 1. Severe Symptomatic Aortic stenosis. 2. CHF 3. Moderate aortic Insufficiency POSTOPERATIVE DIAGNOSIS: Same OPERATION PERFORMED: 1. Transcatheter Aortic Valve Replacement (TAVR) with an Adames 29 mm Emanuel 3 Tissue Valve. 2. Balloon Aortic Valvuloplasty 3. Aortogram. 4. Percutaneous Right femoral Vein Access and Bilateral Common Femoral Artery Access 5. Perclose closure of Left common Femoral artery. 6. Vascade closure of Right common Femoral artery. 7. Fluoroscopy SURGEON: Juan Diego Michel MD CO-SURGEON: Laron Tracy MD CLIN APPLICATION SPECIALIST SURGEON: Sarha Venegas MD CARVER HAND: KEANU Beauchamp MD ANESTHESIA: GETA PROCEDURE: The risks, benefits, complications, treatment options, and expected outcomes were discussed with the patient. The possibilities of reaction to medication, pulmonary aspiration, perforation of viscus, bleeding, recurrent infection, the need for additional procedures, failure to diagnose a condition, and creating a complication requiring transfusion or operation were discussed with the patient. The patient concurred with the proposed plan, giving informed consent. The site of surgery properly noted/marked. The patient was taken to the hybrid operating room and the procedure verified as Transcatheter Aortic Valve Replacement. A Time Out was held and the above information confirmed. Standard monitoring lines and Schmitz catheter were placed. General anesthesia was induced. The patient was prepped and draped in a sterile fashion. Initially, the right femoral arterial and venous access was acquired using a Seldinger percutaneous technique. The details of this procedure were dictated under separate note by cardiology. Once a pigtail was positioned in the aortic annulus and a temporary transvenous pacemaker wire was placed in the right ventricular apex and tested, the left femoral artery was accessed using a needle followed by a guidewire under fluoroscopic guidance. The patient was heparinized and Perclose devices deployed for later closure. Serial dilators were used to dilate the left femoral artery to 14 Amharic caliber. The Adames sheath was then inserted into the external iliac artery up to the distal abdominal aorta. Arch aortography was performed to define the implant view. A balloon aortic valvuloplasty was then performed using a 24 True dilatation balloon with rapid pacing. A 29 Adames Emanuel 3 transcatheter aortic valve was then positioned in the annulus and deployed with the patient being rapidly paced. Following deployment, the valve apparatus was withdrawn and arch aortography and TERRY were performed to assess the valve. The valve had trace perivalvular leak. Gradients were then measured and the sheath was removed while securing the Perclose sutures for hemostasis. Protamine was administered. The right arterial and Venous access sites were closed using the Vascade device. Sterile dressings were placed. At the end of the operation, all sponge, instruments, and needle counts were correct. The patient was transferred to the CVICU in stable condition. Findings: Trace PVL Implants: 29 Emanuel 3 tissue valve Complications: None Disposition: to CVICU in stable condition
[2018-04-15] MEDS ORDERED: Morphine Sulfate Inj 2 MG/ML Vial IV.PUSH PRN (09:39)
[2018-04-15] MEDS ORDERED: hydrALAZINE HCl Inj 20 MG/ML Vial IV.PUSH PRN (09:39)
[2018-04-15] MEDS ORDERED: Benzocaine/Menthol 15 MG/3.6 MG SF Lozenge BUCCAL PRN (09:39)
[2018-04-15] MEDS ORDERED: Acetaminophen 325 MG Tablet PO PRN (09:39)
[2018-04-15] MEDS ORDERED: Atropine Inj 1 MG/ML Vial IV.PUSH PRN (09:39)
[2018-04-15] MEDS ORDERED: fentaNYL Citrate Inj 100 MCG/2 ML Ampul ONE (10:03)
--- NOTE | 2018-04-15 10:40 | MA ---
cc: Laron Tracy MD DATE: 04/15/2018 PROCEDURE: Transcatheter aortic valve replacement. STEWARD/STEWARDESS TOURIST CLASS: Laron Tracy MD [facility] SECONDARY BARGAIN TABLE CLERK: Dr. Sarah Venegas. PRIMARY SURGEON: Dr. Juan Diego Michel. PROCEDURES PERFORMED: 1. Fluoroscopy with interpretation. 2. Ascending aortography. 3. Temporary transvenous pacemaker placement. 4. Transesophageal echocardiogram. 5. Aortic balloon valvuloplasty. 6. Transcatheter aortic valve replacement with a bioprosthetic Adames ZAC S3-29 mm valve. 7. Left heart catheterization. METHOD: Risks, benefits and alternatives discussed with the patient. The patient understood and consented to the procedure. The patient was brought into the catheterization lab and placed on the catheterization table. The right and left groins were prepped and draped. The right groin was anesthetized with 2% lidocaine. The right common femoral artery was cannulated. A 5-New Zealander 11 cm sheath was placed without difficulty. Right femoral vein was accessed. A 5-[place] Zealander long slender sheath was placed without difficulty. Left common femoral artery was accessed under fluoroscopic guidance with a micropuncture sheath; angiogram confirmed good placement. An 8-[place] Zealander sheath was placed with 2 Perclose devices in a pre-close manner. An Adames 16-[place] Zealander sheath was then advanced over the wire to the level of the descending aorta. TEMPORARY TRANSVENOUS PACEMAKER PLACEMENT: Right internal jugular venous sheath was placed and a 5-New Zealander balloon tipped temporary transvenous pacemaker was then advanced to the right ventricular apex. Appropriate pacing was confirmed and utilized during the procedure. TRANSESOPHAGEAL ECHOCARDIOGRAM: See separate transcribed report. AORTOGRAPHY: Aortography was performed with a 5-New Zealander pigtail catheter in the right common femoral arterial sheath. All 3 aortic valve leaflets were visualized and parallel; ascending aorta was not dilated. LEFT HEART CATHETERIZATION: A 5-New Zealander AL-1 catheter was advanced to ascending aorta. A straight J-tipped Amplatz wire was then advanced across the aortic valve with some difficulty. The AL-1 catheter was advanced into the left ventricle. The 0.035-inch 260 cm J-wire was then advanced into the left ventricle apex; AL-1 catheter removed. A 5-New Zealander pigtail catheter advanced to the left ventricular apex. The wire was removed and a 0.035 inch, 260 cm [facility] Confida wire was advanced to the left ventricular apex and the pigtail catheter removed. AORTIC BALLOON VALVULOPLASTY: A 24 mm True balloon aortic valvuloplasty balloon was then advanced over the Confida wire to the ascending aorta and across the aortic valve. With rapid ventricular pacing an aortic valvuloplasty was performed. Repeat transesophageal echocardiogram now showed moderate to severe aortic insufficiency, which the patient tolerated hemodynamically well. No pericardial effusion. The True balloon was removed leaving the wire in place. TRANSCATHETER AORTIC VALVE REPLACEMENT: An Adames 29 mm ZAC S3 valve was then prepped with an additional 2 mL of contrast in the indeflator. The device was then advanced out of the sheath and the balloon pulled into the stent. The aortic valve was then advanced to the ascending aorta and across the zuni aortic valve. With rapid ventricular pacing, contrast injection confirmed good placement. The device was then carefully deployed with slow inflation. Repeat transesophageal echocardiogram showed trace aortic insufficiency with perivalvular leak. There is no significant gradient. There is no effusion and no hemodynamic change. There is no electrocardiographic changes. The wire was removed. The device was then removed. The left common femoral artery Adames sheath was then removed with 2 Perclose devices deployed with good hemostasis. Both the right femoral artery and vein sheaths were removed with a 5-New Zealander VASCADE closure device placement. Good hemostasis. Heparin was administered throughout the entire procedure to maintain appropriate anticoagulation. INTRAOPERATIVE POST-DEPLOYMENT TRANSESOPHAGEAL ECHOCARDIOGRAM FINDINGS: 1. Aortic valve area : 2.5 cm2 2. Peak velocity 1.6 m/s 3. Mean gradient 5 mmHg 4. Aortic insufficiency severity trace-mild CONCLUSIONS: 1. Successful transcatheter aortic valve replacement with a 29 mm Adames ZAC S3 bioprosthetic aortic valve. 2. Successful aortic valvuloplasty. PLAN: The patient will be monitored closely for any post-procedural complications such as stroke, respiratory issues or bleeding. We will continue his Plavix, aspirin and monitor blood pressure closely. We will obtain a limited 2D echocardiogram later today or tomorrow morning. We will see how he does over the course of his early recovery. We will consult Dr. Rodriguez from Electrophysiology for evaluation, although it does not appear that the patient at this point would require a pacemaker. MD JOHNNIE Garcia/shahrzad , 09:53 AM , 10:08 AM CEE
[2018-04-15] MEDS ORDERED: Clevidipine Inj 25 MG/50 ML VIAL ONE (10:45)
--- NOTE | 2018-04-15 13:09 | P.PCN ---
Date of procedure: 04/15/18 Pre-op diagnosis: severe aortic stenosis Post-op diagnosis: other (s/p transcatheter aortic valve replacement) Procedure: Procedure: Transesophageal Echocardiography Diagnosis: Severe aortic stenosis Indications: Perioperative planning for transcatheter aortic valve replacement Consent: Obtained Anesthesia: General endotracheal anesthesia Description of the Procedure: The patient was sedated and mechanically ventilated. The echo probe was inserted easily and without resistance. At the conclusion of the procedure, the echo probe was removed. Please see detailed echocardiogram report for formal findings. Preliminary Findings (not confirmed): Pre-procedure: 1) grossly normal biventricular function 2) left ventricular hypertrophy 3) severe aortic stenosis 4) mild aortic regurgitation 5) trace to mild mitral regurgitation 6) no evidence of intra-atrial shunting by color flow Doppler 7) no pericardial effusion Post-procedure: 1) s/p successful placement of transcatheter aortic valve 2) no evidence of bioprosthetic valve stenosis 3) trace to mild perivalvular leak 4) mild mitral regurgitation 5) no pericardial effusion The patient tolerated the procedure well with no hemodynamic instability. There were no immediate complications noted. There was minimal EBL. I personally performed the procedure.
[2018-04-15] MEDS ORDERED: Magnesium Sulfate Inj 2 GM in Sodium Chlor 0.9% Inj 96 ML IV.SIG PRN (13:16)
[2018-04-15] MEDS ORDERED: Potassium Chlor 20 mEq Premix 20 MEQ/100 ML PIGGYBACK IV.SIG PRN ×2 (13:16)
[2018-04-15] MEDS ORDERED: Sodium Phosphate Inj 30 MMOL in Sodium Chlor 0.9% Inj 250 ML IV.SIG PRN (13:16)
[2018-04-15] MEDS ORDERED: Magnesium Oxide 400 MG Tablet PO PRN (13:16)
[2018-04-15] MEDS ORDERED: Potassium Chlor 40 mEq Premix 40 MEQ/100 ML PIGGYBACK IV.SIG PRN ×2 (13:16)
[2018-04-15] MEDS ORDERED: Potassium Phosphate Inj 30 MMOL in Sodium Chlor 0.9% Inj 250 ML IV.SIG PRN (13:16)
[2018-04-15] MEDS ORDERED: Potassium Phosphate 500 MG Soluble Tablet PO PRN ×2 (13:16)
[2018-04-15] MEDS ORDERED: Potassium Chloride 25 MEQ Effervescent Tablet PO PRN (13:16)
[2018-04-15] MEDS ORDERED: Magnesium Sulfate Inj 4 GM in Sodium Chlor 0.9% Inj 92 ML IV.SIG PRN (13:16)
--- NOTE | 2018-04-15 13:18 | P.CONCC ---
History of Present Illness Service: Critical Care Medicine Consult date: 04/15/18 Requesting Physician: Laron Tracy Reason for Consult: perioperative management of medical comorbidities Primary Care Provider: Trace Topete Provider: Trace Herrera Chief Complaint: Aortic valve stenosis History of Present Illness: This is an 87-year-old male with a history of coronary artery disease status post recent PCI to the mid RCA and severe symptomatic aortic stenosis who presents for elective transcatheter aortic valve replacement. He underwent uncomplicated procedure. He arrives to the CVICU extubated in stable condition. He is arousing from anesthesia so complete review of systems is unobtainable. Limited review of systems is negative for chest pain, shortness of breath, headache, nausea vomiting, sore throat. PMFSH - History History Provided By: Patient - Medical History Medical History: Medical History (Last Reviewed 04/15/18 @ 12:31 by Aiden Murillo) Aortic stenosis Hyperlipidemia Hypertension IBD (inflammatory bowel disease) Kidney disease Prediabetes Shortness of breath on exertion Ulcerative colitis - Family History Family History: Family History (Last Updated 04/15/18 @ 13:11 by Sam Up MD) Other Family history non-contributory - Tobacco History Smoking Status: Never smoker - Alcohol History How Often Do You Have a Drink Containing Alcohol: 4 or more times a week Medications and Allergies Active Medications: Active Medications Acetaminophen (Tylenol) 650 mg PO Q4H PRN PRN Reason: PAIN SCALE 1 TO 2 Stop: 04/16/18 09:38 Aspirin (Aspirin Chew) 81 mg PO DAILY YASMANI Atropine Sulfate (Atropine Inj) 0.5 mg IV.PUSH UNSCH PRN PRN Reason: VAGAL REPONSE Stop: 04/16/18 09:38 Benzocaine/Menthol (Cepacol Max Strength) 1 lozenge BUCCAL Q3H PRN PRN Reason: SORE THROAT Stop: 04/16/18 09:38 Chlorhexidine Gluconate (Chlorhexidine 2% Cloth) 3 pack TOPICAL CARDIAC CATH LAB RADIOLOGY TECHNOLOGIST YASMANI Stop: 04/18/18 06:01 Clonidine HCl (Catapres) 0.2 mg PO Q6H PRN PRN Reason: SBP > 160 mmHg Clopidogrel Bisulfate (Plavix) 75 mg PO DAILY YASMANI Ferrous Sulfate (Ferosul) 325 mg PO DAILY YASMANI Furosemide (Lasix) 20 mg PO ONCE ONE Stop: 04/16/18 09:01 Hydralazine HCl (Apresoline Inj) 10 mg IV.PUSH Q30M PRN PRN Reason: SBP > 160 mmHg Cefazolin Sodium/Dextrose (Ancef 2 Gm Premix Inj) 2 gm in 50 mls @ 100 mls/hr IV.SIG ONCE YASMANI Stop: 04/18/18 06:01 Last Infusion: 04/15/18 08:21 Dose: Infused Sodium Chloride (Ns Inj) 1,000 mls @ 125 mls/hr IV.CONT .Q8H [facility] Sodium Chloride (Ns Inj) 500 mls @ 30 mls/hr IV.SIG .Q10H [facility] Lactated Ringer's (Lr 1000 Ml Inj) 1,000 mls @ 30 mls/hr IV.SIG .Q24H [facility] Stop: 04/16/18 06:14 Iohexol (Omnipaque 350 Inj (Rad Diag)) 50 ml PO ONCE ONE Stop: 04/15/18 09:20 Last Admin: 04/15/18 09:20 Dose: 50 ml Iohexol (Omnipaque 350 Inj (Rad Diag)) 50 ml PO ONCE ONE Stop: 04/15/18 09:21 Last Admin: 04/15/18 09:20 Dose: 20 ml Miscellaneous Information (Misc Information) 0 each OTHER STAT STA Stop: 04/15/18 09:40 Morphine Sulfate (Morphine Inj) 2 mg IV.PUSH Q30M PRN PRN Reason: BREAKTHROUGH PAIN Mupirocin (Bactroban 2% Nasal Oint) 1 applicatio EACH NARE CARDIAC CATH LAB RADIOLOGY TECHNOLOGIST [facility] Stop: 04/18/18 06:01 Ondansetron HCl (Zofran Inj) 4 mg IV.PUSH ONCE PRN PRN Reason: NAUSEA OR VOMITING Oxycodone/Acetaminophen (Percocet 5/325 Mg) 1 tab PO Q6H PRN PRN Reason: PAIN SCALE 3 TO 5 Povidone Iodine (Betadine 5% Antisepsis Kit) 1 applicatio TOPICAL CARDIAC CATH LAB RADIOLOGY TECHNOLOGIST [facility] Stop: 04/18/18 06:01 Allergies Allergy/AdvReac Type Severity Reaction Status Date / Time No Known Allergies Allergy Verified 04/15/18 05:46 Home Medications Medication Instructions Recorded Confirmed Type amlodipine 5 mg PO DAILY 03/12/18 04/15/18 History finasteride 5 mg PO DAILY 03/12/18 04/15/18 History lisinopril 20 mg PO BID 03/12/18 04/15/18 History simvastatin 40 mg PO QPM 03/12/18 04/15/18 History Physical Exam Vital signs: Vital Signs 04/15/18 06:19 04/15/18 09:55 04/15/18 11:11 Temperature 36.8 C 36.5 C Pulse Rate 79 68 66 Respiratory Rate 18 16 16 Blood Pressure 147/84 H 148/53 H 168/56 H Pulse Oximetry 95 04/15/18 12:00 Temperature 36.9 C Pulse Rate 72 Respiratory Rate 14 Blood Pressure 158/50 H Pulse Oximetry Intake & Output 04/14/18 04/15/18 04/15/18 18:59 06:59 18:59 Intake Total 2049 Output Total 320 / 320 Balance 1729 Weight 90 kg Intake: IV 50 / 50 Ancef 2 GM Premix Inj 2 gm In 50 / 50 50 ml @ 100 mls/hr IV.SIG ONCE YASMANI Rx#:[id number] Anesthesia Amount 1999 Output: Estimated Blood Loss 20 / 20 Urine Amount (Catheter) 300 / 300 Indwelling Temp Sensing 300 / 300 Catheter Other: Weight On Admission 90 kg Narrative: GENERAL: Frail elderly male, lying in bed, arousing from anesthesia HEENT: Normocephalic. Atraumatic. Pupils equal, round, reactive, conjugate. Mucous membranes are moist NECK: Trachea is midline. There is no JVD. right IJ introducer sheath with transvenous pacer in place, site is clean and dry, dressing intact. CHEST: unlabored. equal chest rise. nc o2. CARDIOVASCULAR: normal rate, irregularly irregular rhythm. A. fib by telemetry. Transvenous pacer is set VVI at a backup rate of 50. not currently paced. ABDOMEN: Soft, nontender, nondistended. No guarding. MUSCULOSKELETAL: Pulses 2+. No peripheral edema. bilateral groin sites are clean and dry, no evidence of hematoma, dressing intact. distal LE pulses are Dopplerable. NEUROLOGICAL: RASS -2. Arousing from anesthesia. follows commands. moves all extremities. no focal deficits. - Urinary Catheter Management Indwelling Temp Sensing Catheter Cath placed during this visit: yes Reason for continuing: Hourly intake/output Insertion date: 04/15/18 Insertion time: 07:43 Assessment and Plan - Assessment and Plan Plan: Assessment: 87-year-old male postop day 0 status post transcatheter aortic valve replacement via common iliac access. Admit ICU for frequent neurovascular checks and close urine output monitoring. Status post TAVR 04/15 via groin access - close uop monitoring - anticoagulation per Dr. Tracy - keep pacer today - OOB after flat time Hypertension - goal sbp < 180 - add back anti-hypertensives prn Congestive heart failure secondary to valvulopathy - mivf today s/p recent TAVR. will likely need gentle diuresis with home lasix in the coming days. Chronic kidney disease, unknown stage - mivf today. - daily bmp - monitor uop Hyperlipidemia - restart home statin Ulcerative colitis - advance diet after flat time BPH - restart home finasteride SCDs Critical care medicine will continue to follow along while patient is in CVICU.
[2018-04-15] MEDS ORDERED: Iohexol 350 MG/ML 100 ML Vial (for Cath Lab) IVCONTRAST ONE (14:58)
[2018-04-15 15:06] LABS: Alanine Aminotransferase 27 U/L (12-78); Albumin 3.1 g/dL (3.4-5.0); Anion Gap 8 meq/L (5-15); Aspartate Aminotransferase 21 U/L (15-37); Blood Urea Nitrogen 14 mg/dL (7-18); Calcium 7.8 mg/dL (8.5-10.1); Carbon Dioxide 25.2 meq/L (21.0-32.0); Chloride 108 meq/L (98-107); Glomerular Filtration Rate 86 mL/min (>89); Glucose,Random 96 mg/dL (74-106); Potassium 3.9 meq/L (3.5-5.1); Sodium 141 meq/L (136-145)
[2018-04-15 15:07] LABS: Alkaline Phosphatase 49 U/L (45-117)
[2018-04-15 15:39] LABS: Hematocrit 39.7 % (39.0-51.0); Hemoglobin 13.3 gm/dL (13.0-17.0); Mean Corpuscular HGB Conc 33.5 % (32.0-36.0); Mean Corpuscular Hemoglobin 29.9 pg (27.0-34.0); Mean Corpuscular Volume 89.3 fL (80.0-100.0); Mean Platelet Volume 8.8 fL (7.0-11.0); Platelet Count 156 th/mm3 (150-450); Red Blood Count 4.44 mil/mm3 (4.50-5.90); Red Cell Distribution Width 13.7 % (11.6-17.2); White Blood Count 11.4 th/mm3 (4.0-11.0)
--- NOTE | 2018-04-15 16:14 | ECHRPT ---
Indication: CONCLUSIONS Severe [place] aortic valve stenosis Status post transcatheter aortic valve replacement. BP: / HR: Rhythm: Technical Quality: Medications Complications Proc. Components FINDINGS LEFT VENTRICLE Normal left ventricular size. Mild concentric left ventricular hypertrophy. The left ventricular systolic function is low normal with an estimated ejection fraction in the rang e of 50- 55%. RIGHT VENTRICLE Normal right ventricular size and systolic function. LEFT ATRIUM The left atrial size is normal. RIGHT ATRIUM The right atrial size is normal. ATRIAL SEPTUM Normal atrial septal thickness without atrial level shunting by limited color doppler interrogation. AORTA The aortic root and proximal ascending aorta are normal in size on limited imaging. MITRAL VALVE Structurally normal mitral valve. No mitral valve stenosis or regurgitation. AORTIC VALVE Severe [place] aortic valve stenosis Status post transcatheter aortic valve replacement TRICUSPID VALVE Structurally normal tricuspid valve. No tricuspid valve stenosis or regurgitation. VESSELS The inferior vena cava is normal in size. PULMONARY VALVE The pulmonary valve is not well visualized. PERICADIUM No pericardial effusion. Laron Tracy MD, FACC (Electronically Signed) Final Date:15 April 2018 16:13
[2018-04-15 16:26] VITALS: RESP 16
[2018-04-15] MEDS ORDERED: Clevidipine Inj 25 MG/50 ML VIAL IV.CONT PRN (18:45)
[2018-04-15] MEDS: Lisinopril 20 MG Tablet PO SCH (21:49)
[2018-04-16 05:15] LABS: Alanine Aminotransferase 21 U/L (12-78); Albumin 2.9 g/dL (3.4-5.0); Anion Gap 9 meq/L (5-15); Aspartate Aminotransferase 21 U/L (15-37); Blood Urea Nitrogen 15 mg/dL (7-18); Carbon Dioxide 24.2 meq/L (21.0-32.0); Chloride 107 meq/L (98-107); Glomerular Filtration Rate 82 mL/min (>89); Glucose,Random 100 mg/dL (74-106); Potassium 3.9 meq/L (3.5-5.1); Sodium 140 meq/L (136-145)
[2018-04-16 05:17] LABS: Alkaline Phosphatase 46 U/L (45-117); Total Protein 5.6 g/dL (6.4-8.2)
--- NOTE | 2018-04-16 07:46 | P.PNCV ---
- Note Subjective/Hospital Course: Clinically and hemodynamically stable status post TAVR Groin soft, supple without underlying hematoma Not requiring pacemaker Discharge per protocol Objective: Vital Signs - 24 hr 04/15/18 09:55 04/15/18 11:11 04/15/18 11:15 Temperature 97.7 F Pulse Rate 68 66 69 Respiratory Rate 16 16 Blood Pressure 148/53 H 168/56 H Pulse Oximetry 04/15/18 12:00 04/15/18 12:15 04/15/18 13:00 Temperature 98.4 F Pulse Rate 72 74 75 Respiratory Rate 14 14 Blood Pressure 158/50 H 147/50 H Pulse Oximetry 04/15/18 14:00 04/15/18 15:00 04/15/18 16:00 Temperature Pulse Rate 75 74 76 Respiratory Rate 14 16 Blood Pressure 162/52 H 148/53 H Pulse Oximetry 93 L 04/15/18 19:00 04/15/18 21:30 04/15/18 23:00 Temperature 97.4 F L 97.6 F Pulse Rate 70 65 Respiratory Rate 16 16 Blood Pressure 159/48 H 135/38 L Pulse Oximetry 96 97 04/16/18 03:00 Temperature 97.5 F L Pulse Rate 71 Respiratory Rate 16 Blood Pressure 138/37 L Pulse Oximetry 97 Labs: Laboratory Results - last 12 hr 04/16/18 04:30 Sodium 140 Potassium 3.9 Chloride 107 Carbon Dioxide 24.2 Anion Gap 9 BUN 15 Creatinine 0.88 Estimated GFR 82 L Random Glucose 100 Calcium 8.0 L Total Bilirubin 0.5 AST 21 ALT 21 Alkaline Phosphatase 46 Total Protein 5.6 L Albumin 2.9 L Result Diagrams: 04/15/18 14:53 04/16/18 04:30
--- NOTE | 2018-04-16 08:35 | P.DS ---
<Derick Nair - Last Filed: 04/16/18 08:32> Date of admission: 04/15/18 05:29 Primary care physician: Trace Herrera Brief History from admission: This is an 87-year-old male who follows with Dr. Peña Topete in the outpatient setting referred to Dr. Venegas secondary to progressive shortness of breath and severe aortic stenosis. Patient has had history of aortic stenosis over the course of the past 2 years which has become progressively worse. Patient was previously very active but now limited secondary to his symptoms. 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 Patient was then referred for consideration of aortic valve replacement. Patient was evaluated by cardiothoracic surgery and felt to be intermediate risk for surgical aortic valve replacement. After lengthy discussion with the patient, the patient decided to pursue transcatheter aortic valve replacement. Patient is now here today for elective procedure. Patient update on day of discharge: Patient with no issues, complaints, or complications overnight status post TAVR yesterday. For limited echo today. DS: Diagnosis - Discharge Diagnosis (1) Aortic stenosis, severe Status: Acute (2) S/P TAVR (transcatheter aortic valve replacement) Status: Acute DS: Medications - Discharge Medications Prescriptions: aspirin 81 mg PO DAILY #90 tab clopidogrel [Plavix] 75 mg PO DAILY #90 tab DS: Summary Hospital Course: The patient was admitted electively 04/15 for TAVR procedure for severe aortic stenosis. Patient underwent uncomplicated procedure and postprocedural course and will plan for discharge today. - Time Spent with Patient Total time spent providing and/or coordinating discharge services: Exam Vital signs: Vital Signs 04/15/18 09:55 04/15/18 11:11 04/15/18 11:15 Temperature 97.7 F Pulse Rate 68 66 69 Respiratory Rate 16 16 Blood Pressure 148/53 H 168/56 H Pulse Oximetry 04/15/18 12:00 04/15/18 12:15 04/15/18 13:00 Temperature 98.4 F Pulse Rate 72 74 75 Respiratory Rate 14 14 Blood Pressure 158/50 H 147/50 H Pulse Oximetry 04/15/18 14:00 04/15/18 15:00 04/15/18 16:00 Temperature Pulse Rate 75 74 76 Respiratory Rate 14 16 Blood Pressure 162/52 H 148/53 H Pulse Oximetry 93 L 04/15/18 19:00 04/15/18 21:30 04/15/18 23:00 Temperature 97.4 F L 97.6 F Pulse Rate 70 65 Respiratory Rate 16 16 Blood Pressure 159/48 H 135/38 L Pulse Oximetry 96 97 04/16/18 03:00 Temperature 97.5 F L Pulse Rate 71 Respiratory Rate 16 Blood Pressure 138/37 L Pulse Oximetry 97 Intake & Output 04/15/18 04/16/18 04/16/18 18:59 06:59 18:59 Intake Total 2049 Output Total 1070 / 1070 1050 / 1050 Balance 980 / 980 -1050 / -1050 Intake: IV 50 / 50 Ancef 2 GM Premix Inj 2 gm In 50 / 50 50 ml @ 100 mls/hr IV.SIG ONCE YASMANI Rx#:[id number] Anesthesia Amount 1999 Output: Urine 1050 / 1050 Estimated Blood Loss 20 / 20 Urine Amount (Catheter) 1050 / 1050 Indwelling Temp Sensing 1050 / 1050 Catheter Other: # Voids 2 Narrative: GENERAL: Well-developed well-nourished. In no acute distress. NECK: No carotid bruits. No JVD. CARDIOVASCULAR: Regular rate and rhythm. No murmur appreciated. RESPIRATORY: No accessory muscle use. Clear to auscultation. Breath sounds equal bilaterally. MUSCULOSKELETAL: No clubbing or cyanosis. No edema. NEUROLOGICAL: Awake and alert. Normal speech. SKIN: Some mild groin ecchymosis bilaterally with no swelling or tenderness, intact pulses. Results Procedures completed during hospitalization: TAVR Labs on day of discharge: Labs from last 24 hours 04/16/18 04/15/18 04/15/18 04:30 14:53 14:20 WBC 11.4 H RBC 4.44 L Hgb 13.3 Hct 39.7 MCV 89.3 MCH 29.9 MCHC 33.5 RDW 13.7 Plt Count 156 MPV 8.8 Sodium 140 141 Potassium 3.9 3.9 Chloride 107 108 H Carbon Dioxide 24.2 25.2 Anion Gap 9 8 BUN 15 14 Creatinine 0.88 0.85 Estimated GFR 82 L 86 L Random Glucose 100 96 Calcium 8.0 L 7.8 L D Total Bilirubin 0.5 0.5 AST 21 21 ALT 21 27 Alkaline Phosphatase 46 49 Total Protein 5.6 L 6.0 L Albumin 2.9 L 3.1 L MTS Gel Crossmatch 04/15/18 05:58 WBC RBC Hgb Hct MCV MCH MCHC RDW Plt Count MPV Sodium Potassium Chloride Carbon Dioxide Anion Gap BUN Creatinine Estimated GFR Random Glucose Calcium Total Bilirubin AST ALT Alkaline Phosphatase Total Protein Albumin MTS Gel Crossmatch See Detail <Laron Tracy - Last Filed: 04/16/18 09:19> Date of admission: 04/15/18 05:29 Primary care physician: Trace Herrera DS: Diagnosis - Discharge Diagnosis (1) Aortic stenosis, severe Status: Acute (2) Diastolic congestive heart failure, NYHA class 3 Status: Acute DS: Summary - Time Spent with Patient Total time spent providing and/or coordinating discharge services:31 mins Severe aortic valve stenosis status post transcatheter aortic valve replacement Acute on chronic diastolic congestive heart failure, well compensated DC planning for today Less than 30 minutes Exam Vital signs: Vital Signs 04/15/18 09:55 04/15/18 11:11 04/15/18 11:15 Temperature 97.7 F Pulse Rate 68 66 69 Respiratory Rate 16 16 Blood Pressure 148/53 H 168/56 H Pulse Oximetry 04/15/18 12:00 04/15/18 12:15 04/15/18 13:00 Temperature 98.4 F Pulse Rate 72 74 75 Respiratory Rate 14 14 Blood Pressure 158/50 H 147/50 H Pulse Oximetry 04/15/18 14:00 04/15/18 15:00 04/15/18 16:00 Temperature Pulse Rate 75 74 76 Respiratory Rate 14 16 Blood Pressure 162/52 H 148/53 H Pulse Oximetry 93 L 04/15/18 19:00 04/15/18 21:30 04/15/18 23:00 Temperature 97.4 F L 97.6 F Pulse Rate 70 65 Respiratory Rate 16 16 Blood Pressure 159/48 H 135/38 L Pulse Oximetry 96 97 04/16/18 03:00 Temperature 97.5 F L Pulse Rate 71 Respiratory Rate 16 Blood Pressure 138/37 L Pulse Oximetry 97 Intake & Output 04/15/18 04/16/18 04/16/18 18:59 06:59 18:59 Intake Total 2049 / 2049 Output Total 1070 / 1070 1050 / 1050 Balance 980 / 980 -1050 / -1050 Intake: IV 50 / 50 Ancef 2 GM Premix Inj 2 gm In 50 / 50 50 ml @ 100 mls/hr IV.SIG ONCE YASMANI Rx#:[id number] Anesthesia Amount 1999 Output: Urine 1050 / 1050 Estimated Blood Loss 20 / Urine Amount (Catheter) 1050 / 1050 Indwelling Temp Sensing 1050 / 1050 Catheter Other: # Voids 2 Results Labs on day of discharge: Labs from last 24 hours 04/16/18 04/16/18 04/15/18 08:00 04:30 14:53 WBC 8.9 11.4 H RBC 4.24 L 4.44 L Hgb 12.7 L 13.3 Hct 37.7 L 39.7 MCV 89.0 89.3 MCH 30.0 29.9 MCHC 33.6 33.5 RDW 13.8 13.7 Plt Count 148 L 156 MPV 8.6 8.8 Neut % (Auto) 78.4 H Lymph % (Auto) 10.8 [place] % (Auto) 8.7 H Eos % (Auto) 1.7 Baso % (Auto) 0.4 Neut # (Auto) 6.9 Lymph # (Auto) 1.0 [place] # (Auto) 0.8 Eos # (Auto) 0.2 Baso # (Auto) 0.0 WBC Differential . Differential Comment Auto diff final Sodium 140 Potassium 3.9 Chloride 107 Carbon Dioxide 24.2 Anion Gap 9 BUN 15 Creatinine 0.88 Estimated GFR 82 L Random Glucose 100 Calcium 8.0 L Total Bilirubin 0.5 AST 21 ALT 21 Alkaline Phosphatase 46 Total Protein 5.6 L Albumin 2.9 L MTS Gel Crossmatch 04/15/18 04/15/18 14:20 05:58 WBC RBC Hgb Hct MCV MCH MCHC RDW Plt Count MPV Neut % (Auto) Lymph % (Auto) [place] % (Auto) Eos % (Auto) Baso % (Auto) Neut # (Auto) Lymph # (Auto) [place] # (Auto) Eos # (Auto) Baso # (Auto) WBC Differential Differential Comment Sodium 141 Potassium 3.9 Chloride 108 H Carbon Dioxide 25.2 Anion Gap 8 BUN 14 Creatinine 0.85 Estimated GFR 86 L Random Glucose 96 Calcium 7.8 L D Total Bilirubin 0.5 AST 21 ALT 27 Alkaline Phosphatase 49 Total Protein 6.0 L Albumin 3.1 L MTS Gel Crossmatch See Detail Discharge Plan - Discharge Order Discharge Orders: Discharge Order (Routine); Ordered 04/16/18 Ordered By: Laron Tracy Cardiology Clear for Discharge (Routine); Ordered 04/16/18 Ordered By: Laron Tracy - Discharge Details Anticipated Discharge Date: 04/16/18 - Physicians Team Primary Care Provider: Trace Herrera Attending Provider: Laron Tracy Other Providers: Domingo Nunez MD ; Kezia Rodriguez MD ; Katerin Taylor MD - Rxs /Orders / Referrals /Forms Prescriptions: Continue amlodipine 5 mg Tablet 5 mg PO DAILY aspirin 81 mg Tablet,Chewable 81 mg PO DAILY Qty: 90 RF: 3 clopidogrel [Plavix] 75 mg Tablet 75 mg PO DAILY Qty: 90 RF: 3 finasteride 5 mg Tablet 5 mg PO DAILY lisinopril 20 mg Tablet 20 mg PO BID simvastatin 40 mg Tablet 40 mg PO QPM Referrals: Trace Herrera MD [Primary Care Provider] - See Instructions - Discharge Instructions Patient Printed Instructions: Transcatheter Aortic Valve Replacement (DC) Additional Instructions: 30 day Echocardiogram 05/13/18 at 1130am [facility] [phone] [address] [place] [address] 30-day TAVR Follow up Dr Davis 05/22/[address] [address] 1 year Echocardiogram 04/08/19 1130am [facility] [phone] [place] [address] [address]AVR Follow up Dr Davis 04/16/[address] [address]
[2018-04-16] MEDS ORDERED: Furosemide 20 MG Tablet PO ONE (09:00)
[2018-04-16] MEDS ORDERED: Ferrous Sulfate 325 MG Tablet PO SCH (09:00)
[2018-04-16] MEDS ORDERED: amLODIPine 5 MG Tablet PO SCH (09:00)
[2018-04-16] MEDS ORDERED: Finasteride 5 MG Tablet PO SCH (09:00)
[2018-04-16 09:04] LABS: Baso % (Auto) 0.4 % (0.0-2.0); Eos # (Auto) 0.2 th/mm3 (0.0-0.4); Eos % (Auto) 1.7 % (0.0-4.0); Hematocrit 37.7 % (39.0-51.0); Hemoglobin 12.7 gm/dL (13.0-17.0); Lymph % (Auto) 10.8 % (9.0-44.0); Mean Corpuscular HGB Conc 33.6 % (32.0-36.0); Mean Platelet Volume 8.6 fL (7.0-11.0); Mono # (Auto) 0.8 th/mm3 (0.0-0.9); Mono % (Auto) 8.7 % (0.0-8.0); Neut # (Auto) 6.9 th/mm3 (1.8-7.7); Neut % (Auto) 78.4 % (16.0-70.0); Platelet Count 148 th/mm3 (150-450); Red Blood Count 4.24 mil/mm3 (4.50-5.90); Red Cell Distribution Width 13.8 % (11.6-17.2); White Blood Count 8.9 th/mm3 (4.0-11.0)
[2018-04-16] MEDS: Lisinopril 20 MG Tablet PO SCH (10:22)
[2018-04-16 10:36] VITALS: BP 157/48; PULSE 82; TEMP 98.1; O2SAT 94
--- NOTE | 2018-04-16 13:34 | ECHRPT ---
Indication: CONCLUSIONS Status post transcatheter aortic valve replacement. No significant perivalvular leak noted. BP: / HR: Rhythm: MEASUREMENTS (Male / Female) Normal Values Technical Quality: 2D ECHO LVOT Diameter 1.8 cm DOPPLER AV Peak Velocity 252.0 cm/s AV Peak Gradient 25.4 mmHg AV Mean Gradient 15.0 mmHg AV Velocity Time Integral 51.9 cm LVOT Peak Velocity 120.0 cm/s LVOT Peak Gradient 5.8 mmHg LVOT Velocity Time Integral 31.9 cm AV Area Cont Eq vti 1.6 cm AV Area Cont Eq pk 1.2 cm FINDINGS LEFT VENTRICLE Normal left ventricular size and wall thickness. The left ventricular systolic function is normal wi th an estimated ejection fraction in the range of 60-65%. Left ventricular diastolic function parameters a re normal. RIGHT VENTRICLE Normal right ventricular size and systolic function. LEFT ATRIUM The left atrial size is normal. RIGHT ATRIUM The right atrial size is normal. ATRIAL SEPTUM Normal atrial septal thickness without atrial level shunting by limited color doppler interrogation. AORTA The aortic root and proximal ascending aorta are normal in size on limited imaging. MITRAL VALVE Structurally normal mitral valve. No mitral valve stenosis or regurgitation. AORTIC VALVE Status post transcatheter aortic valve replacement. No significant perivalvular leak noted. TRICUSPID VALVE Structurally normal tricuspid valve. No tricuspid valve stenosis or regurgitation. PULMONARY VALVE The pulmonary valve is not well visualized. VESSELS The inferior vena cava is normal in size. PERICARDIUM No pericardial effusion. Laron Tracy MD, FACC (Electronically Signed) Final Date:16 April 2018 13:33
--- NOTE | 2018-04-16 14:54 | MB ---
cc: Kezia Rodriguez MD DATE: 04/15/2018 REASON FOR CONSULTATION: Evaluation for conduction disease post TAVR. HISTORY OF PRESENT ILLNESS: Mr. Hayes is an 87-year-old gentleman with history of high blood pressure, hyperlipidemia, renal insufficiency, severe aortic stenoses; was admitted due to aortic valve replacement. Procedure was performed, it was successful. I was consulted for evaluation and management. The chart was reviewed. The patient was evaluated. ALLERGIES: NONE. SOCIAL HISTORY: Negative for smoking and drinking. FAMILY HISTORY: Noncontributory to his current medical condition. MEDICATIONS: The gentleman is on: 1. Acetaminophen. 2. Amlodipine 5 mg a day. 3. Aspirin 81 mg a day. 4. He is receiving Levaquin. 5. He is on Plavix 75 mg a day. 6. Ferrous sulfate. 7. Proscar 5 mg a day. 8. Lasix 20 mg a day. 9. Lisinopril 20 mg twice a day. 10. Magnesium. 11. Lopressor p.r.n. 12. Percocet p.r.n. 13. Potassium. 14. Pravachol 80 mg a day. REVIEW OF SYSTEMS: The patient is feeling better. No chest pain, no chest discomfort. 1. No fever. PHYSICAL EXAMINATION: GENERAL: Alert, fully oriented. VITAL SIGNS: His blood pressure on evaluation is 148/53, pulse 76, respiratory rate 18. LUNGS: Ventilated. CARDIOVASCULAR: S1, S2. No gallop. No murmur. Right jugular area with central line with a temporary pacemaker. ABDOMEN: Soft. No masses. EXTREMITIES: No edema. DIAGNOSTIC DATA: Electrocardiogram show sinus rhythm, diffuse ST changes. LABORATORY DATA: Hemoglobin is 12.7, white blood cell 8.9. Potassium is 3.9, creatinine is 0.88. ASSESSMENT AND RECOMMENDATIONS: Mr. Hayes is status post transcatheter aortic valve replacement . He is doing very well. Blood pressure will need to be controlled. His electrocardiogram pre and postprocedure is the same. There is apparently no change in conduction. At this point, my recommendation observation for the next 12 hours. If the patient is stable, he can be discharged home. I will follow him as an outpatient. MD JOVANY Xiong/shahrzad , 01:19 PM , 01:30 PM
--- NOTE | 2018-04-17 00:55 | ECG ---
Date Performed: 04/15/2018 Time Performed: 10:25:38 PTAGE: 87 years EKG: Sinus rhythm Left axis deviation IV conduction defect Inferior T wave changes are nonspecific Abnormal ECG Since the PREVIOUS TRACING , no significant change noted DOCTOR: Ori Shelley Interpretating Date/Time 04/17/2018 00:53:55
== END 2018-04-16 11:44 | disposition home or self-care (01) ==
LOC: HSDI 05:29 → HDIC 05:32 → HCVI 10:32
PROVIDERS: ADMIT Internal Medicine; ATTEND Internal Medicine
PROC: TAVRHYB (ICD-10-PCS; 2018-04-15 07:23)